=== PATIENT | female | born 1945 | race Caucasian/White ===

== ENCOUNTER → 2017-05-01 | Outpatient (CLI) | payer OTHER, BC | LOC: FIMAGING 12:56 | PROVIDERS: ATTEND Family Medicine | DX: Z12.31 Encounter for screening mammogram for malignant neoplasm of breast (principal) | CPT/HCPCS: G0202 ==

== ENCOUNTER → 2017-06-19 | Outpatient (CLI) | payer OTHER, BC | LOC: BRMIMAGING 08:38 | PROVIDERS: ATTEND Family Medicine | DX: Z13.820 Encounter for screening for osteoporosis (principal); M85.89 Other specified disorders of bone density and structure, multiple sites ==

== ENCOUNTER → 2018-03-08 | Outpatient (CLI) | payer BC, OTHER | LOC: FIMAGING 10:05 | PROVIDERS: ATTEND Family Medicine | DX: Z13.820 Encounter for screening for osteoporosis (principal); M85.89 Other specified disorders of bone density and structure, multiple sites; Z78.0 Asymptomatic menopausal state ==

== ENCOUNTER → 2018-03-15 | Outpatient (CLI) | payer OTHER, BC | LOC: BHFA 09:00 | PROVIDERS: ATTEND Internal Medicine Cardiovascular Disease | DX: I25.10 Atherosclerotic heart disease of native coronary artery without angina pectoris (principal) ==

== ENCOUNTER → 2018-04-28 | Outpatient (CLI) | payer OTHER, BC | DX: Z12.31 Encounter for screening mammogram for malignant neoplasm of breast (principal) ==

== ENCOUNTER → 2018-06-22 | Outpatient (CLI) | payer OTHER | LOC: CIMAGING 11:33 | PROVIDERS: ATTEND Family Medicine | DX: S92.352A Displaced fracture of fifth metatarsal bone, left foot, initial encounter for closed fracture (principal); M19.072 Primary osteoarthritis, left ankle and foot; M20.12 Hallux valgus (acquired), left foot | CPT/HCPCS: 73630-PO ==

== ENCOUNTER → 2019-02-02 | Outpatient (CLI) | payer OTHER | LOC: FIMAGING 09:02 | PROVIDERS: ATTEND Family Medicine | DX: R19.00 Intra-abdominal and pelvic swelling, mass and lump, unspecified site (principal); R09.89 Other specified symptoms and signs involving the circulatory and respiratory systems; R93.89 Abnormal findings on diagnostic imaging of other specified body structures ==

== ENCOUNTER 2019-02-18 05:36 | Day surgery (SDC) | payer OTHER ==
[2019-02-18] MEDS ORDERED: LR 1,000 ML IV ONE (05:51)
[2019-02-18] MEDS ORDERED: PHENYLEPHRINE HCL 100 MCG/ML SYR IVP PRN (06:32)
[2019-02-18] MEDS ORDERED: LR 500 ML IV PRN (06:32)
[2019-02-18] MEDS ORDERED: ONDANSETRON 4 MG/2 ML VIAL IVP PRN (06:32)
[2019-02-18] MEDS ORDERED: HYDROCODONE/APAP 5/325 TAB PO PRN (06:32)
[2019-02-18] MEDS ORDERED: PROMETHAZINE HCL 25 MG/ML INJ IVP PRN (06:32)
[2019-02-18] MEDS ORDERED: NALOXONE HCL 0.4 MG/ML INJ IVP PRN (06:32)
[2019-02-18] MEDS ORDERED: ACETAMINOPHEN 500 MG TAB PO PRN (06:32)
[2019-02-18] MEDS ORDERED: MEPERIDINE 25 MG/0.5 ML AMP IVP PRN (06:32)
[2019-02-18] MEDS ORDERED: oxyCODONE IR 5 MG TAB PO PRN (06:32)
[2019-02-18] MEDS ORDERED: fentaNYL 100 MCG/2 ML INJ IVP PRN (06:32)
--- NOTE | 2019-02-18 06:32 | PDANEPAE ---
ANE Past Medical History - Cardiovascular History Hx Hypertension: Yes Hx Arrhythmias: No Hx Chest Pain: No Hx Coronary Artery / Peripheral Vascular Disease: No Hx CHF / Valvular Disease: No Hx Palpitations: No Cardiovascular History Comment: ELEVATED CHOLESTEROL - Pulmonary History Hx COPD: No Hx Asthma/Reactive Airway Disease: No Hx Recent Upper Respiratory Infection: No Hx Oxygen in Use at Home: No Hx Sleep Apnea: No Sleep Apnea Screening Result - Last Documented: Negative - Neurologic History Hx Cerebrovascular Accident: No Hx Seizures: No Hx Dementia: No - Endocrine History Hx Diabetes: No Hypothyroid: No Hyperthyroid: No Obesity: no - Renal History Hx Renal Disorders: No Renal History Comment: PREV CYSTITIS - Liver History Hx Hepatic Disorders: No - Neurological & Psychiatric Hx Hx Neurological and Psychiatric Disorders: No - Cancer History Hx Cancer: Yes Cancer History Comment: SKIN - Congenital Disorder History Hx Congenital Disorders: No - GI History GERD: no Hx Gastrointestinal Disorders: No - Other Health History Other Health History: OSTEOPENIA - Chronic Pain History Chronic Pain: No - Surgical History Prior Surgeries: RT S/O. LT KNEE SCOPE ANE Review of Systems Review of Systems: - Exercise capacity Exercise capacity: >=4 METS METS (RN): 6 METS ANE Patient History - Allergies Allergies/Adverse Reactions: No Known Allergies Allergy (Verified 06/11/13 09:52) - Home Medications Home Medications: ALENDRONATE SODIUM DAILY 02/11/19 [Last Taken Unknown] Aspirin 81mg (*) HS 02/11/19 [Last Taken 02/10/19] Ezetimibe HS 02/11/19 [Last Taken Unknown] Irbesartan DAILY 02/11/19 [Last Taken 02/18/19] Rosuvastatin Calcium HS 02/11/19 [Last Taken 02/17/19] Zyrtec-D Tablet DAILY 02/11/19 [Last Taken Unknown] - NPO status NPO Since - Liquids (Date): 02/18/19 NPO Since - Liquids (Time): 04:45 NPO Since - Solids (Date): 02/17/19 NPO Since - Solids (Time): 19:00 - Anes Hx Anes Hx: no prior problems - Smoking Hx Smoking Status: Former smoker Marijuana use: No - Alcohol Use Alcohol Use: Occasionally - Family Anes Hx Family Anes Hx: neg - N/A ANE Labs/Vital Signs - Vital Signs Blood Pressure: 118/73 Heart Rate: 138 Respiratory Rate: 16 O2 Sat (%): 95 Height: 162.56 cm Weight: 76.204 kg ANE Physical Exam - Airway Neck exam: FROM Mallampati Score: Class 2 Mouth exam: normal dental/mouth exam - Pulmonary Pulmonary: no respiratory distress, no rales or rhonchi, clear to auscultation - Cardiovascular Cardiovascular: regular rate and rhythym, no murmur, rub, or gallop - ASA Status ASA Status: II ANE Anesthesia Plan Anesthesia Plan: GA w LMA Total IV Anesthesia: No
[2019-02-18] MEDS ORDERED: PROPOFOL 200 MG/20 ML VIAL ONE (06:54)
[2019-02-18] MEDS ORDERED: fentaNYL 100 MCG/2 ML INJ ONE (06:54)
[2019-02-18] MEDS ORDERED: ONDANSETRON 4 MG/2 ML VIAL ONE (06:55)
[2019-02-18] MEDS ORDERED: DEXAMETHASONE 4 MG/ML VIAL ONE (06:56)
[2019-02-18] MEDS ORDERED: LIDOCAINE 2% 5 ML SDV ONE (06:57)
--- NOTE | 2019-02-18 07:21 | PDHPUP ---
History & Physical Update H&P update statement: This history and physical update is based on an assessment of the patient which was completed after admission or registration (within 24 hours), but prior to the surgery/procedure. H&P update: H&P reviewed & patient examined, no change in patient's condition since H&P completed
[2019-02-18] MEDS ORDERED: ePHEDrine SULFATE 25 MG/5 ML SYR ONE (07:50)
[2019-02-18] MEDS ORDERED: KETOROLAC 30 MG/1 ML SDV ONE (08:02)
--- NOTE | 2019-02-18 08:59 | POSTOPPROG ---
Post Op Note Date of Operation: 02/18/19 Surgeon: Naheed Love Anesthesiologist: Elliot Holguin Anesthesia: LMA Pre-op Diagnosis: endometrial mass Post-op Diagnosis: same Indication: same Procedure: H/s myomectomy Findings: large endometrial fibroid Inf/Abcess present in the surg proc area at time of surgery?: No EBL: Minimal Complications: none
--- NOTE | 2019-02-18 09:31 | POSTANESTH ---
Post Anesthetic Evaluation Cardiovascular Status: Normal, Stable Respiratory Status: Normal, Stable Level of Consciousness/Mental Status: Can Participate in Eval Pain Control: Adequate, Prn Tx Ordered Nausea/Vomiting Control: Adequate, Prn Tx Ordered Complications Possibly Related to Anesthesia: None Noted
[2019-02-18 09:39] VITALS: BP 131/88
--- NOTE | 2019-02-18 11:01 | GOP ---
[f rep st] OPERATIVE REPORT DATE OF OPERATION: 02/18/2019 SURGEON: Naheed Love MD ANESTHESIA: General with LMA. ANESTHESIOLOGIST: Elliot Mckeon DO PREOPERATIVE DIAGNOSIS: Endometrial mass. POSTOPERATIVE DIAGNOSIS: Endometrial mass, possible fibroid. PROCEDURE PERFORMED: Hysteroscopic myomectomy. FINDINGS: Quite large mass in the endometrium with a discolored area that looks like a possible hemo rrhage and a second what looked like a polyp just superior to this mass. Normal tubal ostia. Normal cervix. INDICATIONS: The patient is a 73-year-old who was referred by Dr. Armida Rodriguez for incidental end ometrial mass noted on ultrasound, which was done because of abdominal discomfort. She has had no bl eeding and not on hormone therapy. The endometrial mass was noted to be about 2 to 3 cm and patient desires definitive evaluation and pathological evaluation. DESCRIPTION OF PROCEDURE: With informed consent signed, patient was taken to the operating room and placed under general anesthesia without complication, placed in the low dorsal lithotomy position, pr epped and draped in the usual sterile fashion. Bladder previously emptied. Tenaculum placed on the anterior lip of the cervix. Cervix dilated to 9 mm and 9 mm hysteroscope esme patrice into the uterus using saline and findings as noted above. The reciprocator blade placed into the hysteroscopic morcellator, which was then placed into the hysteroscope and resection of this mass wa s done without complications. There was no bleeding. Once it was felt that the entire area was removed, patient awakened in the operating room, taken to r ecovery room in stable condition, tolerated procedure well. Fluid deficit was 70. COMPLICATIONS: None. Copy requested to: Armida Crisostomo /[id number]/MODL
== END 2019-02-18 09:38 | disposition home or self-care (01) ==
LOC: FSGY 05:36
PROVIDERS: ATTEND Obstetrics & Gynecology Gynecology
PROC: 0UB98ZZ Excision of Uterus, Via Natural or Artificial Opening Endoscopic (ICD-10-PCS; principal; 2019-02-18 07:15)
DX: D25.9 Leiomyoma of uterus, unspecified (principal)
CPT/HCPCS: 58561; C1782; J1100; J1885; J2405; J2704; J3010